=== PATIENT | male | born 1940 | race Caucasian/White ===

== ENCOUNTER 2018-03-27 13:29 | Emergency (ER) | payer OTHER ==
[~2018-03-27] VITALS: Ht 177.8 cm; Wt 85.4 kg
[2018-03-27 13:32] VITALS: BP 142/79
[2018-03-27] MEDS ORDERED: POLOS EACHEYE (14:04)
[2018-03-27] MEDS ORDERED: ALBU8.5H8 IH (14:04)
== END 2018-03-27 14:15 | disposition home or self-care (01) ==
LOC: ER 13:31
DX: H10.31 Unspecified acute conjunctivitis, right eye (principal); J06.9 Acute upper respiratory infection, unspecified; J40 Bronchitis, not specified as acute or chronic; Z79.899 Other long term (current) drug therapy
CPT/HCPCS: 71045; 99283

== ENCOUNTER 2024-11-26 08:18 | Inpatient (IN) | payer BC, MEDICARE ==
[~2024-11-26] VITALS: Ht 190.5 cm; Wt 85.8 kg
[~2024-11-26 08:18] MED LIST: ALBU8.5H17 IH
[2024-11-26 08:56] LABS: BASOPHILS # (AUTO) 0.1 X10'3 (0-0.2); BASOPHILS % (AUTO) 1.2 % (0-1); EOSINOPHILS # (AUTO) 0.4 X10'3 (0-0.9); EOSINOPHILS % (AUTO) 6.4 % (0-6); HEMATOCRIT 40.4 % (42.0-52.0); HEMOGLOBIN 13.7 g/dl (14.0-17.9); LYMPHOCYTES # (AUTO) 2.1 X10'3 (1.1-4.8); LYMPHOCYTES % (AUTO) 32.6 % (21-51); MEAN CORPUSCULAR HGB CONC 33.9 g/dL (33.0-36.5); MEAN CORPUSCULAR VOLUME 88.5 FL (78-98); MEAN PLATELET VOLUME 8.2 FL (7.4-10.4); MONOCYTES # (AUTO) 0.8 X10'3 (0-0.9); MONOCYTES % (AUTO) 12.9 % (2-12); NEUTROPHILS % (AUTO) 46.9 % (42-75); PLATELET COUNT 211 X10'3 (140-440); RED BLOOD COUNT 4.57 X10'6 (4.70-6.10); RED CELL DISTRIBUTION WIDTH 14.2 % (11.5-14.5); WHITE BLOOD COUNT 6.4 X10'3 (4.5-11.0)
[2024-11-26 09:12] LABS: ALANINE AMINOTRANSFERASE 28 U/L (12-78); ALBUMIN 3.4 G/DL (3.4-5.0); ALKALINE PHOSPHATASE 97 IU/L (46-116); ANION GAP 7 (8-16); ASPARTATE AMINO TRANSFERASE 18 U/L (10-37); BILIRUBIN,TOTAL 0.4 MG/DL (0.1-1.0); BLOOD UREA NITROGEN 32 MG/DL (7-18); BUN/CREATININE RATIO 35.6 (10.0-20.0); CALCIUM 9.5 MG/DL (8.5-10.1); CHLORIDE 106 MMOL/L (99-107); GLUCOSE 111 MG/DL (70-104); POTASSIUM 4.4 MMOL/L (3.5-5.1); SODIUM 139 MMOL/L (135-145); TOTAL CARBON DIOXIDE 26.2 MMOL/L (24-32); TOTAL PROTEIN 6.8 G/DL (6.4-8.2); eCRCL 72 ML/MIN; eGFR 80 ML/MIN
[2024-11-26 09:22] LABS: ACETAMINOPHEN 44.8 UG/ML (10-30); CREATINE KINASE 64 U/L (39-308); ETHANOL < 10 MG/DL (<10); LIPASE 70 U/L (16-77); PHOSPHORUS 3.9 MG/DL (2.3-4.5); THYROID STIMULATING HORMONE 2.34 ulU/ml (0.34-4.50)
[2024-11-26 09:30] LABS: BILIRUBIN,URINE NEGATIVE (Neg); CLARITY,URINE CLEAR (Clear); COLOR,URINE YELLOW (Yellow); GLUCOSE, URINE NEGATIVE (Neg); KETONES,URINE NEGATIVE (Neg); LEUKOCYTE ESTERASE ,URINE NEGATIVE (Neg); NITRITES, URINE NEGATIVE (Neg); OCCULT BLOOD,URINE NEGATIVE (Neg); PH,URINE 5.5 (4.8-8.0); PROTEIN,URINE NEGATIVE (Neg); UROBILINOGEN,URINE 0.2 E.U/dL (0.2-1.0)
[2024-11-26 09:39] LABS: URINE AMPHETAMINE SCREEN NEGATIVE (Neg); URINE BARBITUATE SCREEN NEGATIVE (Neg); URINE BENZODIAZEPINES SCREEN NEGATIVE (Neg); URINE CANNABINOID SCREEN NEGATIVE (Neg); URINE COCAINE SCREEN NEGATIVE (Neg); URINE METHADONE SCREEN NEGATIVE (Neg); URINE OPIATE SCREEN NEGATIVE (Neg); URINE PHENCYCLIDINE SCREEN NEGATIVE (Neg)
[2024-11-26 09:59] LABS: UA COLLECTION TYPE NON-SPECIFIED
[2024-11-26] MEDS ORDERED: acetylcysteine 200 MG/ml 4ml vial PO ONE (10:20)
[2024-11-26] MEDS ORDERED: WATER IV ONE (10:50)
[2024-11-26] MEDS ORDERED: ACETYLCYSTEINE IV ONE (10:50)
[2024-11-26] MEDS ORDERED: DEXTROSE 5% IV ONE (10:50)
[2024-11-26] MEDS: ACETYLCYSTEINE IV ONE (13:27)
[2024-11-26] MEDS: WATER IV ONE (13:27)
[2024-11-26] MEDS: DEXTROSE 5% IV ONE (13:27)
[2024-11-26] MEDS: WATER IV SCH (14:43)
[2024-11-26] MEDS: ACETYLCYSTEINE IV SCH (14:43)
[2024-11-26] MEDS: DEXTROSE 5% IV SCH (14:43)
[2024-11-26] MEDS ORDERED: magnesium Cl slow-release 64mg tablet PO PRN (15:40)
[2024-11-26] MEDS ORDERED: mag hydrox/Alum hydrox/simeth 30ml oral suspension PO PRN (15:40)
[2024-11-26] MEDS ORDERED: diphenhydrAMINE 25mg capsule PO PRN (15:40)
[2024-11-26] MEDS ORDERED: magnesium hydroxide 30ml (MOM) UD suspension PO PRN (15:40)
[2024-11-26] MEDS ORDERED: bisacodyl 10mg suppository rectal RC PRN (15:40)
[2024-11-26] MEDS ORDERED: potassium Cl 40MEQ/1/2NS 520ml 520 ML IV PRN (15:40)
[2024-11-26] MEDS ORDERED: potassium Cl 20 mEq SR tablet PO PRN ×2 (15:40)
[2024-11-26] MEDS ORDERED: magnesium sulf-water 4G/100mL 100 ML IV PRN (15:40)
[2024-11-26] MEDS ORDERED: magnesium sulf-water 2g/50mL 50 ML IV PRN (15:40)
[2024-11-26] MEDS ORDERED: morphine 2 MG/ML inj. syringe IV PRN ×2 (15:40)
[2024-11-26] MEDS: normal saline 1000ml 1,000 ML IV SCH (16:25)
[2024-11-26 16:51] LABS: HEMOGLOBIN A1C 6.2 % (4.5-6.2)
[2024-11-26] MEDS ORDERED: FLO0.4C PO (17:35)
[2024-11-26] MEDS ORDERED: DONE-55 PO (17:35)
[2024-11-26] MEDS ORDERED: LORA-269 PO (17:35)
[2024-11-26] MEDS ORDERED: QUET25TA PO (17:38)
[2024-11-26 19:57] LABS: ALANINE AMINOTRANSFERASE 29 U/L (12-78); ALBUMIN 3.2 G/DL (3.4-5.0); ALBUMIN/GLOBULIN RATIO 0.8 (1.1-1.5); ALKALINE PHOSPHATASE 89 IU/L (46-116); ANION GAP 17 (8-16); ASPARTATE AMINO TRANSFERASE 20 U/L (10-37); BILIRUBIN,TOTAL 0.6 MG/DL (0.1-1.0); BLOOD UREA NITROGEN 25 MG/DL (7-18); BUN/CREATININE RATIO 33.3 (10.0-20.0); CALCIUM 9.1 MG/DL (8.5-10.1); CHLORIDE 105 MMOL/L (99-107); CREATININE 0.75 MG/DL (0.60-1.10); GLUCOSE 138 MG/DL (70-104); POTASSIUM 4.2 MMOL/L (3.5-5.1); SODIUM 146 MMOL/L (135-145); TOTAL CARBON DIOXIDE 23.6 MMOL/L (24-32); TOTAL PROTEIN 7.2 G/DL (6.4-8.2); eCRCL 86 ML/MIN; eGFR > 90 ML/MIN
[2024-11-26] MEDS: K and/or MAG REPLACEMENT MC SCH (20:00)
[2024-11-26 20:15] LABS: ACETAMINOPHEN < 2.0 UG/ML (10-30)
[2024-11-26] MEDS: docusate sod 100mg capsule PO SCH (20:50)
[2024-11-26] MEDS: heparin, porcine 5000 units/ml vial SQ SCH (20:50)
[2024-11-26 22:42] LABS: BILIRUBIN,URINE NEGATIVE (Neg); CLARITY,URINE CLEAR (Clear); COLOR,URINE YELLOW (Yellow); GLUCOSE, URINE NEGATIVE (Neg); KETONES,URINE 40 mg/dl (Neg); LEUKOCYTE ESTERASE ,URINE NEGATIVE (Neg); NITRITES, URINE NEGATIVE (Neg); OCCULT BLOOD,URINE MODERATE (Neg); PROTEIN,URINE NEGATIVE (Neg); UROBILINOGEN,URINE 0.2 E.U/dL (0.2-1.0)
[2024-11-26 22:44] LABS: UA COLLECTION TYPE NON-SPECIFIED
[2024-11-26 22:53] LABS: BACTERIA,URINE FEW /HPF (Neg); RBC,URINE 20-50 /HPF (0-2); SQUAMOUS EPITHELIAL CELL,UR FEW /LPF (FEW); WBC,URINE 0-4 /HPF (0-4)
[2024-11-27 02:45] LABS: BASOPHILS % (AUTO) 0.3 % (0-1); EOSINOPHILS # (AUTO) 0.2 X10'3 (0-0.9); EOSINOPHILS % (AUTO) 1.4 % (0-6); HEMATOCRIT 41.2 % (42.0-52.0); HEMOGLOBIN 13.9 g/dl (14.0-17.9); LYMPHOCYTES # (AUTO) 1.4 X10'3 (1.1-4.8); LYMPHOCYTES % (AUTO) 9.7 % (21-51); MEAN CORPUSCULAR HEMOGLOBIN 29.7 PG (27.0-31.0); MEAN CORPUSCULAR HGB CONC 33.7 g/dL (33.0-36.5); MEAN CORPUSCULAR VOLUME 88.1 FL (78-98); MEAN PLATELET VOLUME 8.3 FL (7.4-10.4); MONOCYTES # (AUTO) 1.4 X10'3 (0-0.9); MONOCYTES % (AUTO) 9.6 % (2-12); NEUTROPHILS # (AUTO) 11.2 X10'3 (1.8-7.7); PLATELET COUNT 209 X10'3 (140-440); RED BLOOD COUNT 4.68 X10'6 (4.70-6.10); WHITE BLOOD COUNT 14.2 X10'3 (4.5-11.0)
[2024-11-27 03:05] LABS: ALBUMIN 2.9 G/DL (3.4-5.0); ANION GAP 8 (8-16); BLOOD UREA NITROGEN 21 MG/DL (7-18); BUN/CREATININE RATIO 37.5 (10.0-20.0); CALCIUM 8.7 MG/DL (8.5-10.1); CHLORIDE 106 MMOL/L (99-107); CHOL/HDL RATIO 4.8 (0.00-4.99); CHOLESTEROL 173 MG/DL (0-200); CREATININE 0.56 MG/DL (0.60-1.10); GLUCOSE 129 MG/DL (70-104); HDL CHOLESTEROL 36 MG/DL (35-60); LDL CHOLESTEROL 106 MG/DL (50-100); MAGNESIUM 1.7 MG/DL (1.5-2.4); PHOSPHORUS 2.1 MG/DL (2.3-4.5); POTASSIUM 3.9 MMOL/L (3.5-5.1); SODIUM 140 MMOL/L (135-145); TOTAL CARBON DIOXIDE 26.1 MMOL/L (24-32); TRIGLYCERIDES 191 MG/DL (20-135); eCRCL 115 ML/MIN; eGFR > 90 ML/MIN
[2024-11-27] MEDS: ondansetron/PF 4mg/2ml inj IV PRN (05:08)
[2024-11-27] MEDS ORDERED: LORazepam 1 MG tablet PO PRN (12:50)
[2024-11-27 15:05] LABS: ALANINE AMINOTRANSFERASE 29 U/L (12-78); ALBUMIN/GLOBULIN RATIO 0.8 (1.1-1.5); ALKALINE PHOSPHATASE 79 IU/L (46-116); ANION GAP 9 (8-16); ASPARTATE AMINO TRANSFERASE 16 U/L (10-37); BILIRUBIN,TOTAL 0.5 MG/DL (0.1-1.0); BLOOD UREA NITROGEN 17 MG/DL (7-18); BUN/CREATININE RATIO 30.9 (10.0-20.0); CALCIUM 9.1 MG/DL (8.5-10.1); CHLORIDE 107 MMOL/L (99-107); CREATININE 0.55 MG/DL (0.60-1.10); GLUCOSE 108 MG/DL (70-104); POTASSIUM 3.6 MMOL/L (3.5-5.1); SODIUM 141 MMOL/L (135-145); TOTAL CARBON DIOXIDE 25.4 MMOL/L (24-32); TOTAL PROTEIN 6.7 G/DL (6.4-8.2); eCRCL 117 ML/MIN; eGFR > 90 ML/MIN
[2024-11-27 21:10] VITALS: BP 137/67; PULSE 75; RESP 14; TEMP 97.6; O2SAT 96
[2024-11-27 23:00] VITALS: RESP 14; O2SAT 98
[2024-11-28 02:00] VITALS: BP 148/66; PULSE 70; RESP 14; TEMP 97.6; O2SAT 95
[2024-11-28 04:25] LABS: BASOPHILS % (AUTO) 0.3 % (0-1); EOSINOPHILS # (AUTO) 0.2 X10'3 (0-0.9); EOSINOPHILS % (AUTO) 1.8 % (0-6); HEMATOCRIT 42.6 % (42.0-52.0); HEMOGLOBIN 14.2 g/dl (14.0-17.9); LYMPHOCYTES # (AUTO) 1.5 X10'3 (1.1-4.8); LYMPHOCYTES % (AUTO) 14.2 % (21-51); MEAN CORPUSCULAR HEMOGLOBIN 29.6 PG (27.0-31.0); MEAN CORPUSCULAR HGB CONC 33.2 g/dL (33.0-36.5); MEAN CORPUSCULAR VOLUME 89.1 FL (78-98); MEAN PLATELET VOLUME 8.6 FL (7.4-10.4); MONOCYTES # (AUTO) 1.4 X10'3 (0-0.9); MONOCYTES % (AUTO) 12.9 % (2-12); NEUTROPHILS # (AUTO) 7.4 X10'3 (1.8-7.7); NEUTROPHILS % (AUTO) 70.8 % (42-75); PLATELET COUNT 218 X10'3 (140-440); RED BLOOD COUNT 4.78 X10'6 (4.70-6.10); WHITE BLOOD COUNT 10.5 X10'3 (4.5-11.0)
[2024-11-28 04:43] LABS: ANION GAP 6 (8-16); BLOOD UREA NITROGEN 17 MG/DL (7-18); BUN/CREATININE RATIO 24.6 (10.0-20.0); CALCIUM 8.8 MG/DL (8.5-10.1); CHLORIDE 108 MMOL/L (99-107); CREATININE 0.69 MG/DL (0.60-1.10); GLUCOSE 111 MG/DL (70-104); MAGNESIUM 1.9 MG/DL (1.5-2.4); POTASSIUM 3.6 MMOL/L (3.5-5.1); SODIUM 142 MMOL/L (135-145); TOTAL CARBON DIOXIDE 28.1 MMOL/L (24-32); eCRCL 94 ML/MIN; eGFR > 90 ML/MIN
[2024-11-28 06:06] VITALS: BP 142/63; PULSE 68; RESP 14; TEMP 97.7; O2SAT 94
[2024-11-28 07:32] VITALS: RESP 16; O2SAT 94
[2024-11-28 11:05] VITALS: BP 140/54; PULSE 61; RESP 15; TEMP 98.2; O2SAT 93
[2024-11-28] MEDS: tamsulosin 0.4mg capsule PO SCH (11:08)
[2024-11-28] MEDS: QUEtiapine 25mg tablet PO SCH (11:08)
[2024-11-28] MEDS: donepezil 5mg tablet PO SCH (11:08)
[2024-11-28 11:11] VITALS: BP 140/54; PULSE 61; RESP 15; TEMP 98.5; O2SAT 93
== END 2024-11-28 15:30 | disposition home health service (06) | DRG 918 ==
LOC: ER 08:18 → ED HOLD 15:40 → CMPBEDREQ 11-27 21:15 → PCU 3S 11-27 21:15
PROVIDERS: ADMIT Family Medicine; ATTEND Internal Medicine
DX: T39.1X1A Poisoning by 4-Aminophenol derivatives, accidental (unintentional), initial encounter (principal); F03.90 Unspecified dementia, unspecified severity, without behavioral disturbance, psychotic disturbance, mood disturbance, and anxiety; E78.5 Hyperlipidemia, unspecified; D72.829 Elevated white blood cell count, unspecified; M25.511 Pain in right shoulder; Z79.899 Other long term (current) drug therapy; Z90.49 Acquired absence of other specified parts of digestive tract; Y92.89 Other specified places as the place of occurrence of the external cause
CPT/HCPCS: 36415; 80048; 80053; 80061; 80305; 80320; 80329; 81001; 81003; 82550; 83036; 83690; 83735; 84100; 84443; 84484; 85025; 87081; 92508; 92616; 93005; 96361; 96365; 96366; 96372; 97110; 97116; 97162; 99285; A6590; C1758; G0378; J0132; J1644; J2405; J7030; J7060; J7070

== ENCOUNTER 2025-08-10 17:53 | Emergency (ER) | payer OTHER, BC ==
[~2025-08-10] VITALS: Ht 188 cm; Wt 83.0 kg
[~2025-08-10 17:53] MED LIST changes: -ALBU8.5H17 IH; +DONE-55 PO; +LORA-269 PO; +QUET25TA PO; +TAMS-55 PO
--- NOTE | 2025-08-10 18:08 | ELECTROCARDIOGRAPH REPORT ---
[facility] Test Date: 2025-08-10 Test Time: 18:05:49 Pat Name: SHIELA DUONG Department: [facility]- Patient ID: [id number] Room: Gender: M Belt Sander: : 1940 Requested By: TALI CASILLAS Order Number: [id number] Reading MD: Measurements Intervals [place] Rate: 62 P: 69 MS: 261 QRS: 40 QRSD: 90 T: 56 QT: 419 QTc: 426 Interpretive Statements Pacemaker spikes or artifacts Sinus rhythm Borderline prolonged MS interval Probable left atrial enlargement RSR' in V1 or V2, right VCD or RVH Please click the below link to view image of tracing.
--- NOTE | 2025-08-10 18:09 | Physician Documentation ---
History of Present Illness ~ Chief Complaint: Nausea Stated Complaint: NAUSEA Time Seen by MD: 18:01 Primary Medical Doctor: Unknown HPI Patient presents to the emergency room for evaluation of nausea. Patient lives in assisted living in that has history of dementia. When asked if he remembers falling recently he states that he does not remember much. Apparently he fell recently that has sustained no injuries. Denies abdominal pain. Denies chest pain Medication Reconciliation Allergies: Coded Allergies: No Known Allergies (Unverified , 08/10/25) Scheduled Donepezil Hcl (Donepezil Hcl), 1 TAB PO DAILY, (Reported) Ondansetron 8mg ODT (Ondansetron Odt), 1 TAB PO Q8H Quetiapine Fumarate (Seroquel), 1 TAB PO DAILY, (Reported) Tamsulosin Hcl* (Flomax*), 1 CAP PO DAILY, (Reported) Scheduled PRN Lorazepam (Ativan), 1 TAB PO DAILY PRN for agitation, (Reported) Past Medical History Past Medical History: No Pertinent History Past Surgical History: noncontributory Alcohol Use: Rarely Lives In: Home Review of Systems ROS All review of systems negative except as per HPI Physical Exam Vital Signs: Temperature: 97.7, Source: Oral, Heart Rate: 64, Respiratory Rate: 18, BP: 146/91, Pulse Oximetry: 96, Weight: 83.000 Physical Exam General: Patient is awake, alert, cooperative in no acute distress Head: Normocephalic and atraumatic. Eyes: Conjunctival normal. EOMI. PERRL. ENT: Mucous membranes moist. Neck: Supple, trachea is midline. Chest: Clear to auscultation bilaterally without rales, rhonchi, or wheezes. There is no accessory muscle use or retractions. Cardiac: RRR without murmurs, gallops, or rubs. Abd: Soft, nondistended, nontender, with normoactive bowel sounds. No guarding, rebound, or rigidity. Progress Results/Orders Results/Orders Orders - SIMONE WHITT MD Chest,Single View (08/10/25 18:32) Covid19 Binax Poc Result Entry (08/10/25 18:12) Completed Orders - SIMONE WHITT MD Procalcitonin (08/10/25 18:04) Normal Saline 1000ml (0.9% Sodium Chlori (08/10/25 18:05) Ondansetron Inj. (Zofran 4mg/2ml Vial) (08/10/25 18:05) Chest,Single View (08/10/25 18:32) Influenza Type A&B Rapid Test (08/10/25 18:12) Medications Received in ER Medications (Trade) Dose Ordered Sig/Yessenia Route PRN Reason Start Time Stop Time Status Last Admin Dose Admin Sodium Chloride 1,000 ml @ 1,000 mls/hr ONCE ONCE IV 08/10/25 18:05 08/10/25 19:04 DC 08/10/25 18:21 1,000 MLS/HR (Zofran 4mg/2ml vial) 4 mg ONCE ONCE IV 08/10/25 18:05 08/10/25 18:06 DC 08/10/25 18:21 4 MG Vital Signs 08/10/25 08/10/25 08/10/25 17:57 19:21 20:10 Temp 97.7 97.6 Pulse 64 49 60 Resp 18 12 B/P (MAP) 146/91 167/70 (102) 154/72 (99) Pulse Ox 96 98 98 O2 Flow Rate 0 0 Laboratory Tests Test 08/10/25 18:25 08/10/25 18:52 08/10/25 20:19 White Blood Count 8.1 Red Blood Count 5.07 Hemoglobin 14.3 Hematocrit 43.4 Mean Corpuscular Volume 85.6 Mean Corpuscular Hemoglobin 28.2 Mean Corpuscular Hemoglobin Concent 33.0 Red Cell Distribution Width 14.2 Platelet Count 266 Mean Platelet Volume 9.1 Neutrophils (%) (Auto) 59.0 Lymphocytes (%) (Auto) 22.1 Monocytes (%) (Auto) 12.2 H Eosinophils (%) (Auto) 5.6 Basophils (%) (Auto) 1.1 H Neutrophils # (Auto) 4.7 Lymphocytes # (Auto) 1.8 Monocytes # (Auto) 1.0 H Eosinophils # (Auto) 0.5 Basophils # (Auto) 0.1 CBC Comment Sodium Level 139 Potassium Level 3.8 Chloride Level 103 Carbon Dioxide Level 29.8 Anion Gap 6 L Blood Urea Nitrogen 13 Creatinine 0.78 Estimated GFR/1.73 m2 > 90 BUN/Creatinine Ratio 16.7 Glucose Level 100 Calcium Level 9.5 Total Bilirubin 0.3 Aspartate Amino Transf (AST/SGOT) 22 Alanine Aminotransferase (ALT/SGPT) 21 Alkaline Phosphatase 105 Troponin I High Sensitivity 8 Total Protein 7.4 Albumin 3.4 Globulin 4.0 Albumin/Globulin Ratio 0.9 L Amylase Level 36 Lipase 27 Procalcitonin < 0.05 Chemistry Comments Influenza Type A Antigen Negative Influenza Type B Antigen Negative SARS-CoV-2 Antigen (Rapid) Negative Urine Specimen Description Non-specified Urine Color Yellow Urine Clarity Clear Urine pH 6.0 Urine Specific [place] 1.010 Urine Protein Negative Urine Glucose (UA) Negative Urine Ketones Negative Urine Occult Blood Negative Urine Nitrite Negative Urine Bilirubin Negative Urine Urobilinogen 0.2 Urine Leukocyte Esterase Negative Urine Culture Indicated Not ind Volume Urine Centrifuged 10 ml Urine Comment EKG/XRAY/CT/US/VASC/MRI EKG : Additional Comment EKG interpreted by myself shows time of 1805, rate 62, sinus rhythm, normal axis, ST changes Medical Decision Making Additional information obtaine: old records Findings Patient presents to the emergency room with chief complaint of nausea. History limited secondary to patient's dementia. We treated that has nausea he states he feels fine at this juncture. No abdominal tenderness and labs are reassuring. He had not feel he requires a CT scan. Viral panel negative. Vital signs stable. Differentials include but are not limited to ACS dehydration electrolyte disturbances intra-abdominal infection gastritis. Diff Dx GI Bleed:Consideration: Include: AE fistula, Angiodysplasia, Bleeding diathesis, Blood loss anemia, Carcinoma, Diverticulosis, Diverticulitis, Esophageal varicies, Esophagitis, Gastritis, Gastroenteritis, Inflammatory BD, Madeline-Marquez syndrome, Meckel's diverticulum, PUD, Other Diff Dx Pain:Considerations: Include: AAA, Angina/LA, Aortic dissection, Appendicitis, Bowel obstruction, Cholangitis, Cholecystitis, Cholelithasis, Constipation, Diverticular disease, Esophageal rupture, Esophagitis, Gastritis, Gastroenteritis, GI hemorrhage, Hepatitis, Hernia, Inflammatory BD, Ischemic bowel, Mass, Pancreatitis, Porphyria, PUD, Testicular torsion, Trauma, intraabdominal, Urinary obstruction, Urinary tract infection, Urolithiasis, Other Diff Dx N/V/D:Considerations: Include: Appendicitis, Bowel obstruction, Dehydration, DKA, Diarrhea - bacterial, Diarrhea - parasitic, Diarrhea - viral, Diverticulitis, Diverticulosis, Drug toxicity, Electrolyte imbalance, Food poisoning, Gastroenteritis, GE reflux, GI bleed, Hepatitis, Hernia, Hypovolemia, Hypotension, Inflammatory BD, Impaction, Malnutrition, Pancreatitis, PUD, Renal failure, Urinary obstruction, UTI, Urolithiasis, Other Diff Dx Rectal:Considerations: Include: Fissure, Fistula, Foreign body, Impaction, Perirectal abscess, Prostatitis, Rectal prolapse, Subcutaneous abscess, Thrombosed hemorrhoid, Ulcer, UTI, Other Departure Disposition: HOME / SELF CARE / HOMELESS Impression: Primary Impression: Nausea & vomiting Condition: Improved Discharge Instructions: Nausea and Vomiting, Adult, [id number] Additional Instructions: Labs including troponin reassuring today. He has responded to antiemetics. Referrals: NO PRIMARY CARE PROVIDER (PCP) Prescriptions Ondansetron 8mg ODT (Ondansetron Odt) 8 Mg Tab.rapdis 1 TAB PO Q8H for nausea/vomiting for 2 Days, #6 TAB 0 Refills Prov: SIMONE WHITT MD 08/10/25 Signature Scribe Signature: No scribe Attestation: The note accurately reflects work and decisions made by me.Simone Whitt MD 08/10/25 21:08 SIMONE WHITT MD Aug 10, 2025 18:09
[2025-08-10] MEDS: normal saline 1000ml 1,000 ML IV ONE (18:21)
[2025-08-10] MEDS: ondansetron/PF 4mg/2ml inj IV ONE (18:21)
--- NOTE | 2025-08-10 18:43 | RADIOLOGY REPORT ---
CHEST RADIOGRAPH REASON FOR EXAM: cough COMPARISON: None TECHNIQUE: One view of the chest is provided FINDINGS: Evaluation is degraded by patient rotation. There is no lobar consolidation. There is no large pleural effusion. No pneumothorax is identified. There are degenerative changes at the right shoulder. IMPRESSION: Evaluation degraded by patient rotation. No lobar consolidation. No large pleural effusion.
[2025-08-10 19:13] LABS: MEAN PLATELET VOLUME 9.1 FL (7.4-10.4); RED CELL DISTRIBUTION WIDTH 14.2 % (11.5-14.5)
[2025-08-10 19:31] LABS: INFLUENZA TYPE A ANTIGEN RAPID NEGATIVE (Negative); INFLUENZA TYPE B ANTIGEN RAPID NEGATIVE (Negative)
[2025-08-10 20:10] VITALS: TEMP 97.6
[2025-08-10 20:46] LABS: CREATININE 0.78 MG/DL (0.60-1.10); TOTAL CARBON DIOXIDE 29.8 MMOL/L (24-32); eCRCL 79 ML/MIN; eGFR > 90 ML/MIN
[2025-08-10 20:51] LABS: LEUKOCYTE ESTERASE ,URINE NEGATIVE (Neg); NITRITES, URINE NEGATIVE (Neg); OCCULT BLOOD,URINE NEGATIVE (Neg)
[2025-08-10 21:01] LABS: UA COLLECTION TYPE NON-SPECIFIED
[2025-08-10] MEDS ORDERED: ONDA-245 PO (21:07)
[2025-08-10 21:13] VITALS: BP 159/70; PULSE 54; RESP 12; O2SAT 97
[2025-08-10] MEDS: famotidine/PF 10 mg/ml inj IV ONE (21:21)
== END 2025-08-11 00:58 | disposition home or self-care (01) ==
LOC: ER 17:53
DX: R11.2 Nausea with vomiting, unspecified (principal); Z95.0 Presence of cardiac pacemaker; Z79.899 Other long term (current) drug therapy; Z20.822 Contact with and (suspected) exposure to COVID-19
CPT/HCPCS: 36415; 71045; 80053; 81003; 82150; 83690; 84145; 84484; 85025; 87804; 87811; 93005; 96361; 96374; 96375; 99285; J2405; J2470; J3490; J7030